=== PATIENT | female | born 1970 | race Caucasian/White ===

== ENCOUNTER 2019-03-10 14:24 | Emergency (ER) | payer OTHER ==
[2019-03-10 14:41] VITALS: BP 108/63; PULSE 88; TEMP 98.1; BMI 26.5
--- NOTE | 2019-03-10 15:07 | PDOC ---
History of Present Illness - General Chief Complaint: Cold Symptoms Stated Complaint: CONGESTED/COUGHING/ COLD SYMPTOMS Time Seen by Provider: 03/10/19 14:43 - History of Present Illness Initial Comments: 03/10/19 15:03 49-year-old female presents for evaluation of sinus pressure intermittent fevers and cough x15 days Past History - Past Medical History Allergies/Adverse Reactions: Allergies Allergy/AdvReac Type Severity Reaction Status Date / Time No Known Allergies Allergy Verified 03/10/19 14:54 Home Medications: Ambulatory Orders Amox-Tr/K Cl [Augmentin - 875Mg Tablet] 1 tab PO BID #20 tablet 03/10/19 Budesonide [Rhinocort Allergy] 1 spray NS ONCE #1 spray.pump 03/10/19 COPD: No Other medical history: PNEUMONIA - Immunization History Immunization Up to Date: No - Psycho Social/Smoking Cessation Hx Smoking History: Never smoked Have you smoked in the past 12 months: No Information on smoking cessation initiated: No Hx Alcohol Use: No Drug/Substance Use Hx: No Review of Systems - Review of Systems Constitutional: Yes: Fever HEENTM: Yes: Nose Congestion Respiratory: Yes: Cough *Physical Exam - Vital Signs Last Vital Signs Temp Pulse Resp BP Pulse Ox 98.1 F 88 18 108/63 98 03/10/19 14:39 03/10/19 14:39 03/10/19 14:39 03/10/19 14:39 03/10/19 14:39 - Physical Exam 03/10/19 15:03 GENERAL: The patient is awake, alert, and fully oriented, in no acute distress. HEAD: Normal with no signs of trauma. EYES: sclera anicteric, conjunctiva clear. ENT: Ears normal tympanic membranes normal oropharynx clear uvula midline; maxillary and frontal sinus tenderness NECK: Normal range of motion LUNGS: Breath sounds equal, clear to auscultation bilaterally. No wheezes, and no crackles. HEART: S1 and S2 without murmur, rub or gallop. ABDOMEN: Soft, nontender, normoactive bowel sounds. No guarding, no rebound. No masses. EXTREMITIES: Normal range of motion, no edema. No clubbing or cyanosis. No cords, erythema, or tenderness. NEUROLOGICAL: Cranial nerves II through XII grossly intact. Normal speech, normal gait. PSYCH: Normal mood, normal affect. SKIN: Warm, Dry, normal turgor, no rashes or lesions noted. Medical Decision Making - Medical Decision Making 03/10/19 15:03 Examination and history consistent with bacterial sinusitis will treat appropriately Discharge - Discharge Information Problems reviewed: Yes Clinical Impression/Diagnosis: Bacterial sinusitis Condition: Stable Disposition: HOME - Admission No - Additional Discharge Information Prescriptions: Amox-Tr/K Cl [Augmentin - 875Mg Tablet] 1 tab PO BID #20 tablet Budesonide [Rhinocort Allergy] 1 spray NS ONCE #1 spray.pump - Follow up/Referral Referrals: Jacob Whitman MD [Staff Physician] - - Patient Discharge Instructions Patient Printed Discharge Instructions: Sinusitis Additional Instructions: Please take the antibiotics and use the nasal spray as directed. Return to the emergency room for worsening symptoms. And without fail please follow-up with your primary care physician in 2 to 3 days for further evaluation and treatment options. Tylenol and Motrin as directed for fevers. - Post Discharge Activity
== END 2019-03-10 15:10 | disposition home or self-care (01) ==
LOC: JERFT 14:24
DX: J32.8 Other chronic sinusitis (principal); B96.89 Other specified bacterial agents as the cause of diseases classified elsewhere
CPT/HCPCS: 99281-25

== ENCOUNTER 2020-06-09 09:04 | Emergency (ER) | payer OTHER ==
[2020-06-09 09:13] VITALS: BP 101/61; PULSE 89; TEMP 97.9; BMI 19.2
== END 2020-06-09 10:13 | disposition home or self-care (01) ==
LOC: JER 09:04
DX: J02.9 Acute pharyngitis, unspecified (principal); R51.9 Headache, unspecified; Z11.52 Encounter for screening for COVID-19
CPT/HCPCS: 99283-25; C9803; U0003; U0005